=== PATIENT | female | born 1990 | race Caucasian/White ===

== ENCOUNTER 2021-12-16 08:41 | Day surgery (SDC) | payer SELFPAY ==
[~2021-12-16 08:41] MED LIST: CEFAZOLIN SODIUM 1 GM/VIAL ONE; FENTANYL CITR 100 MCG/2 ML ONE; GENTAMICIN SULF 80 MG/2ML INJ ONE; KETOROLAC 30 MG/ML INJ ONE; LIDOCAINE 1% W/EPI 1:100,000 10 ML VIAL ONE; LIDOCAINE 2% MPF 5 ML VIAL ONE; MIDAZOLAM HCL 2 MG/2 ML INJ ONE; NS 0.9% VIAL 10 ML ONE; NS 0.9% VIAL 40 ML ONE; ONDANSETRON 4 MG/2 ML VIAL ONE; Ringers Lactate 1,000 ML IV ONE; VECURONIUM 10 MG/VIAL IV ONE; dexAMETHasone 10 MG/ML VIAL ONE; propofoL 200 MG/20 ML VIAL IV ONE
[2021-12-16 08:54] LABS: Specific Gravity 1.025 (1.005-1.030)
[2021-12-16] MEDS ORDERED: BUPIVACAINE 0.25% PF 10 ML VIAL ONE (08:57)
[2021-12-16] MEDS ORDERED: LIDOCAINE 1% MPF 5 ML VIAL ONE (08:57)
[2021-12-16 09:02] LABS: SARS-CoV-2 Antigen Rapid Res Negative (Negative)
[2021-12-16] MEDS ORDERED: Ringers Lactate 1,000 ML IV ONE (09:06)
[2021-12-16] MEDS ORDERED: CEFAZOLIN SODIUM 1 GM/VIAL ONE (09:06)
[2021-12-16] MEDS ORDERED: CLINDAMYCIN INJ 300 MG in NA CHLORIDE 0.9% 50 ML IV ONE (09:30)
[2021-12-16] MEDS ORDERED: CLINDAMYCIN 900MG/D5W 900 MG/50 ML IVPB IV ONE (09:38)
[2021-12-16] MEDS ORDERED: HYDROMORPHONE HCL 1 MG/ML INJ ONE ×2 (10:07→14:21)
[2021-12-16] MEDS ORDERED: NS 0.9% VIAL 10 ML ONE ×2 (10:47→11:56)
[2021-12-16] MEDS ORDERED: VECURONIUM 10 MG/VIAL IV ONE (10:50)
[2021-12-16] MEDS ORDERED: Mastisol Adhesive Liq ONE (12:28)
[2021-12-16] MEDS ORDERED: NEOSTIGMINE 1 MG/ML -10 ML VIAL ONE (13:09)
[2021-12-16] MEDS ORDERED: GLYCOPYRROLATE 0.2 MG/ML SYR ONE (13:09)
[2021-12-16] MEDS: HYDROMORPHONE HCL 1 MG/ML INJ ONE ×2 (13:43→14:00)
[2021-12-16] MEDS ORDERED: PROMETHAZINE INJ 25 MG/ML AMP ONE (13:49)
[2021-12-16] MEDS ORDERED: CODEINE 30MG/APAP 300MG TAB ONE (15:21)
[2021-12-16 16:32] VITALS: TEMP 97.6; O2SAT 100
[2021-12-16 16:35] VITALS: BP 120/61
--- NOTE | 2021-12-17 01:29 | HP ---
Date of Admission: 12/16/2021 History Of Present Illness: A 31-year-old white female who requests a breast lift, has the family with breast cancer. She is 36C. Past Medical History: No medical problems. Past Surgical History: Social History: Does not smoke, does not drink. Allergies: SHE IS ALLERGIC TO PENICILLIN. Medications: No meds. Physical Examination: She is 5 feet 2 inches 150 pounds , BMI 27. Assessment: She has a breast hanging from the chest wall. Plan: With breast lift. MARCO/JACKSON Voice ID: [id number]
--- NOTE | 2021-12-17 09:46 | OP ---
Surgeon: Pernell Bates MD Branch Or Department Chief Librarian: Dominic. Preoperative Diagnosis: Breast descent. Postoperative Diagnosis: Breast descent. Procedure: Breast lift. Anesthesia: General. Description Of Procedure: After the satisfactory induction of general anesthesia, the chest was prepped with DuraPrep, dry sterile drapes were placed. 45 mm template was used to outline the right and left areolae. Then, a transverse curved incision was made on both breast. Intervening skin was de- epithelialized with tenotomy scissors. The right side was first approached. Electrocautery was used to dissect down approximately 0.5 cm and then flaps were elevated toward the sternum, clavicle, and anterior axillary line. Then, the inferior incision was made. A retropectoral dissection was performed and then the flap was formed into a cone with 2-0 PDS sutures. After this was done, the straps were elevated at 12 o'clock, 0130, and 3 o'clock positions. Straps were then looped through the muscle and cone twice and , tied to themselves with 2-0 PDS suture. This was done for the 12 o'clock and 0130 straps. The 3 o'clock strap was sewn over the sternum at 3 o'clock position with 2-0 Ethibond. The right side was done in a mirror-image manner. The patient was sat up. Dog ears were marked out. The patient was placed supine. Dog ears were excised. A 10 FRANCISCO was brought out the axilla and sewn in place with 2-0 silk. Wound was irrigated with antibiotic solution and wound was closed with 3-0 Vicryl for subcu, 3-0 PDS running subcuticular from medial-lateral, lateral-medial, tied in vertical running, done on both sides. After this was done, the patient was sat up, site for new nipple-areolar complex was marked out, tissue removed . Nipple-areolar complex was delivered and sewn with interrupted 4-0 PDS followed by 4-0 PDS running subcuticular. Dressings consisted of tincture of benzoin, Steri-Strips, fiberglass moulage , and Yuriy wrap. The patient tolerated the procedure well. 6 g was removed from the right side and 18 g from the left side. GH/MODL Voice ID: [id number] Report ID: [id number]
== END 2021-12-16 16:25 | disposition home or self-care (01) ==
LOC: OR 08:41
PROVIDERS: ATTEND Specialist
PROC: 0HSV0ZZ Reposition Bilateral Breast, Open Approach (ICD-10-PCS; principal; 2021-12-16 09:00)
DX: N64.81 Ptosis of breast (principal); Z20.822 Contact with and (suspected) exposure to COVID-19; Z80.3 Family history of malignant neoplasm of breast
CPT/HCPCS: 36415; 81025; 87811; 88305; J0690; J1100; J1170; J1580; J2250; J2405; J2550; J2704; J2710; J3010; J7120